=== PATIENT | female | born 1970 | race Caucasian/White ===

== ENCOUNTER → 2021-07-06 | Outpatient (CLI) | payer OTHER ==
--- NOTE | 2021-07-06 11:52 | KCIC ---
EXAM: Chest, 2 views. HISTORY: Tuberculosis screening. COMPARISON: None. FINDINGS: 2 views of the chest are obtained. There is no infiltrate, pleural effusion or pneumothorax . The heart is normal in size. IMPRESSION: No acute pulmonary finding or evidence of pulmonary tuberculosis. Electronically signed by: Abigail De La Torre MD (07/06/2021 11:50 AM) [id number]
== END ==
LOC: KCIC 11:22
PROVIDERS: ATTEND Nurse Practitioner Family
DX: Z13.9 Encounter for screening, unspecified (principal)
CPT/HCPCS: 71046